=== PATIENT | female | born 1975 ===

== ENCOUNTER 2024-05-15 15:58 | Emergency (ER) | payer OTHER ==
[~2024-05-15] VITALS: Ht 162.6 cm; Wt 59.1 kg
[2024-05-15 17:07] VITALS: TEMP 98.3
[2024-05-15 17:30] LABS: BASOPHILS % (AUTO) 0.7 % (0.0-2.0); EOSINOPHILS % (AUTO) 1.7 % (1.0-6.0); HEMOGLOBIN 14.2 g/dL (12.0-16.0); LYMPHOCYTES # (AUTO) 2.1 K/uL (1.0-4.8); LYMPHOCYTES % (AUTO) 15.4 % (22.0-44.0); MEAN CORPUSCULAR HEMOGLOBIN 28.1 pg (26.0-34.0); MEAN CORPUSCULAR HGB CONC 32.3 G/dL (31.0-37.0); MEAN CORPUSCULAR VOLUME 87 fL (80-100); MONOCYTES # (AUTO) 0.7 K/uL (0.1-1.0); NEUTROPHILS # (AUTO) 10.7 K/uL (1.8-7.7); NEUTROPHILS % (AUTO) 77.2 % (40.0-70.0); PLATELET COUNT (AUTO) 296 K/uL (150-450); RED BLOOD CELL COUNT(AUTO) 5.06 MIL/uL (4.00-5.20); RED CELL DISTRIBUTION WIDTH 13.4 % (11.5-14.5); WHITE BLOOD COUNT (AUTO) 13.8 K/uL (4.5-11.0)
[2024-05-15 17:52] LABS: ANION GAP 9 mmol/L (8-16); CALCIUM, TOTAL 8.9 mg/dL (8.8-10.5); CARBON DIOXIDE 28 mmol/L (22-29); CHLORIDE 102 mmol/L (98-107); CREATININE 0.45 mg/dL (0.60-1.30); GLOMERULAR FILTR. RATE CALC > 60 mL/min (>60); GLUCOSE,RANDOM 92 mg/dL (70-110); POTASSIUM 3.9 mmol/L (3.5-5.1); SODIUM SERUM 139 mmol/L (136-145); UREA NITROGEN, BLOOD 9 mg/dL (7-18)
[2024-05-15 17:58] LABS: ALANINE AMINOTRANSFERASE 17 U/L (12-78); ALBUMIN 3.5 g/dL (3.4-5.0); ALKALINE PHOSPHATASE 61 U/L (46-116); ASPARTATE AMINOTRANSFERASE 16 U/L (15-37); BILIRUBIN,TOTAL 0.7 mg/dL (0.1-1.0); CREATINE KINASE, TOTAL ONLY 46 U/L (26-192); LIPASE 56 U/L (16-77); TOTAL PROTEIN, SERUM 7.2 g/dL (6.4-8.2)
[2024-05-15] MEDS ORDERED: LISI-893 PO (17:59)
[2024-05-15] MEDS ORDERED: AZEL137S8 NASAL (18:04)
[2024-05-15] MEDS ORDERED: ATOR10TA69 PO (18:04)
[2024-05-15] MEDS ORDERED: CYAN-53 PO (18:04)
[2024-05-15] MEDS ORDERED: EMPA10TA3 PO (18:04)
[2024-05-15] MEDS ORDERED: SEMA0.258 SQ (18:04)
[2024-05-15] MEDS ORDERED: DEXL60CA18 PO (18:04)
[2024-05-15] MEDS ORDERED: CHOL200059 PO (18:04)
[2024-05-15] MEDS ORDERED: FLUT16H NASAL (18:04)
[2024-05-15 18:17] LABS: TROPONIN I-HIGH SENSITIVITY 4 ng/L (<51)
[2024-05-15 18:26] LABS: B-TYPE NATRIURETIC PEPTIDE 22 pg/mL (0-100)
[2024-05-15 19:20] VITALS: BP 110/69; PULSE 72; RESP 16; O2SAT 97
[2024-05-15 20:50] LABS: TROPONIN I-HIGH SENSITIVITY 4 ng/L (<51)
[2024-05-15] MEDS: PB/HYOSCY/ATR/SCOP/LIDO/MAALOX 55 ML BOTTLE PO ONE (21:19)
== END 2024-05-15 21:25 | disposition home or self-care (01) ==
LOC: EMS 15:58
DX: K20.90 Esophagitis, unspecified without bleeding (principal); R07.89 Other chest pain
CPT/HCPCS: 71045; 76705; 80053; 82550; 83690; 83880; 84484; 85025; 93005; 99285; 36415-L1; 36415-TC